=== PATIENT | female | born 1965 | race Caucasian/White ===

== ENCOUNTER 2019-08-10 16:09 | Emergency (ER) | payer OTHER ==
[~2019-08-10] VITALS: Ht 160 cm; Wt 74.8 kg
[~2019-08-10 16:09] MED LIST: CELEXA10 MG; SYNTHROID100 MCG
== END 2019-08-10 20:20 | disposition home or self-care (01) ==
LOC: ER 16:09
DX: T78.49XA Other allergy, initial encounter (principal); R06.02 Shortness of breath; R49.0 Dysphonia